=== PATIENT | female | born 1950 | race Caucasian/White ===

== ENCOUNTER 2019-05-15 19:15 | Emergency (ER) | payer BC, OTHER ==
[2019-05-15 20:06] LABS: ABS Eosinophils 0.1 10^3/ul (0-0.6); ABS Lymphocytes 1.6 10^3/ul (1.0-4.8); ABS Monocytes 0.5 10^3/ul (0-0.8); ABS Neutrophils 3.9 10^3/ul (1.5-7.7); Eosinophil % 1.8 %; Hematocrit 38 % (35-47); Hemoglobin 12.8 g/dL (12.0-16.0); Lymphocyte % 26.5 %; Mean Corpuscular HGB Conc 34 g/dL (31-36); Mean Corpuscular Hemoglobin 31 pg (27-31); Mean Corpuscular Volume 90 fL (80-97); Mean Platelet Volume 8.8 fL (7.4-10.4); Platelet Count 236 10^3/uL (150-450); Red Blood Count 4.19 10^6 /uL (3.70-4.87); Red Cell Distribution Width 14 % (10-15); White Blood Count 6.1 10^3/uL (3.5-10.8)
[2019-05-15 20:12] LABS: INR 1.15 (0.82-1.09)
[2019-05-15 20:27] LABS: Albumin/Globulin Ratio 1.6 (1-3); BUN/Creatinine Ratio 21.3 (8-20); C Reactive Protein 5.06 mg/L (<8.01); Calcium 9.6 mg/dL (8.6-10.3); EGFR African American 85.8 (>60); EGFR Non-African American 70.9 (>60); Globulin 2.5 g/dL (2-4); Potassium 3.9 mmol/L (3.5-5.0); Total Bilirubin 0.5 mg/dL (0.2-1.0); Total Protein 6.5 g/dL (6.4-8.9)
[2019-05-15] MEDS ORDERED: NS 0.9% 1000 ML** 1,000 ML IV ONE (21:01)
[2019-05-15] MEDS ORDERED: Morphine 4 MG/ML VIAL (1 ml) 4 MG/ML VIAL IV ONE (21:01)
--- NOTE | 2019-05-15 21:11 | ED ---
Abdominal Pain/Female - HPI Summary HPI Summary: 69 y/o female presented to [facility] complaining of abdominal pain present since yesterday. Pt began to feel cramps yesterday that were helped by a BM. Today at lunch the abd pain became worse. Pt endorses nausea, lack of appetite, and decreased oral intake. Pt denies fever, dysuria, and hematuria. She took ibuprofen today, which helped. Pain was also helped in the room by laying flat. Pt notes she has had food poisoning and stomach flu, but this feels different. Last BM was this morning. Pt denies Hx of DM or HTN and noted FHx of SBO. Pt denies cigarette use and drug use, and uses alcohol occasionally. She has her appendix. - History of Current Complaint Chief Complaint: EDAbdPain Stated Complaint: POSS APPENDICITIS PER PT Time Seen by Provider: 05/15/19 20:52 Hx Obtained From: Patient Onset/Duration: Lasting Days, Still Present Timing: Days Severity Currently: Moderate Pain Intensity: 7 Pain Scale Used: 0-10 Numeric Allergies/Adverse Reactions: Allergies Allergy/AdvReac Type Severity Reaction Status Date / Time Adhesive Tape Allergy Rash Verified 05/15/19 19:18 PMH/Surg Hx/FS Hx/Imm Hx Musculoskeletal History: Denies: Hx Osteoporosis - Cancer History Hx Chemotherapy: No Hx Radiation Therapy: No Infectious Disease History: No Infectious Disease History: Denies: Traveled Outside the [place] in Last 30 Days - Social History Alcohol Use: Rare Substance Use Type: Reports: None Smoking Status (MU): Never Smoked Tobacco Review of Systems All Other Systems Reviewed And Are Negative: Yes Physical Exam - Summary Physical Exam Summary: Constitutional: Well-developed, Well-nourished, Alert. (-) Distressed Skin: Warm, Dry HENT: Normocephalic; Atraumatic Eyes: Conjunctiva normal Neck: Musculoskeletal ROM normal neck. (-) JVD, (-) Stridor, (-) Tracheal deviation Cardio: Rhythm regular, rate normal, Heart sounds normal; Intact distal pulses; Radial pulses are 2+ and symmetric. (-) Murmur Pulmonary/Chest wall: Effort normal. (-) Respiratory distress, (-) Wheezes, (-) Rales Abd: Soft, (+) tendernessat McBurney's point, (-) Distension, (-) Guarding, (-) Rebound, Negative Obturator sign, no pain with heel tap Musculoskeletal: (-) Edema Lymph: (-) Cervical adenopathy Neuro: Alert, Oriented x3 Psych: Mood and affect Normal Triage Information Reviewed: Yes Vital Signs On Initial Exam: Initial Vitals Temp Pulse Resp BP Pulse Ox 97.3 F 80 16 164/86 99 05/15/19 19:17 05/15/19 19:17 05/15/19 19:17 05/15/19 19:17 05/15/19 19:17 Vital Signs Reviewed: Yes Procedures - Sedation Patient Received Moderate/Deep Sedation with Procedure: No Diagnostics - Vital Signs Vital Signs Temp Pulse Resp BP Pulse Ox 05/15/19 19:17 97.3 F 80 16 164/86 99 - Laboratory Lab Results: Lab Results 05/15/19 05/15/19 05/15/19 Range/Units 19:59 19:59 19:59 WBC 6.1 (3.5-10.8) 10^3/uL RBC 4.19 (3.70-4.87) 10^6 /uL Hgb 12.8 (12.0-16.0) g/dL Hct 38 (35-47) % MCV 90 (80-97) fL MCH 31 (27-31) pg MCHC 34 (31-36) g/dL RDW 14 (10-15) % Plt Count 236 (150-450) 10^3/uL MPV 8.8 (7.4-10.4) fL Neut % (Auto) 63.2 % Lymph % (Auto) 26.5 % Chester % (Auto) 7.8 % Eos % (Auto) 1.8 % Baso % (Auto) 0.7 % Absolute Neuts (auto) 3.9 (1.5-7.7) 10^3/ul Absolute Lymphs (auto) 1.6 (1.0-4.8) 10^3/ul Absolute Monos (auto) 0.5 (0-0.8) 10^3/ul Absolute Eos (auto) 0.1 (0-0.6) 10^3/ul Absolute Basos (auto) 0.0 (0-0.2) 10^3/ul Absolute Nucleated RBC 0.0 10^3/ul Nucleated RBC % 0.0 INR (Anticoag Therapy) (0.82-1.09) Sodium 139 (135-145) mmol/L Potassium 3.9 (3.5-5.0) mmol/L Chloride 106 (101-111) mmol/L Carbon Dioxide 27 (22-32) mmol/L Anion Gap 6 (2-11) mmol/L BUN 17 (6-24) mg/dL Creatinine 0.80 (0.51-0.95) mg/dL Est GFR ( Amer) 85.8 (>60) Est GFR (Non-Af Amer) 70.9 (>60) BUN/Creatinine Ratio 21.3 H (8-20) Glucose 120 H (70-100) mg/dL Lactic Acid 1.2 (0.5-2.0) mmol/L Calcium 9.6 (8.6-10.3) mg/dL Total Bilirubin 0.50 (0.2-1.0) mg/dL AST 26 (13-39) U/L ALT 17 (7-52) U/L Alkaline Phosphatase 78 (34-104) U/L C-Reactive Protein 5.06 (<8.01) mg/L Total Protein 6.5 (6.4-8.9) g/dL Albumin 4.0 (3.2-5.2) g/dL Globulin 2.5 (2-4) g/dL Albumin/Globulin Ratio 1.6 (1-3) Lipase 14 (11.0-82.0) U/L 05/15/19 Range/Units 19:59 WBC (3.5-10.8) 10^3/uL RBC (3.70-4.87) 10^6 /uL Hgb (12.0-16.0) g/dL Hct (35-47) % MCV (80-97) fL MCH (27-31) pg MCHC (31-36) g/dL RDW (10-15) % Plt Count (150-450) 10^3/uL MPV (7.4-10.4) fL Neut % (Auto) % Lymph % (Auto) % Chester % (Auto) % Eos % (Auto) % Baso % (Auto) % Absolute Neuts (auto) (1.5-7.7) 10^3/ul Absolute Lymphs (auto) (1.0-4.8) 10^3/ul Absolute Monos (auto) (0-0.8) 10^3/ul Absolute Eos (auto) (0-0.6) 10^3/ul Absolute Basos (auto) (0-0.2) 10^3/ul Absolute Nucleated RBC 10^3/ul Nucleated RBC % INR (Anticoag Therapy) 1.15 H (0.82-1.09) Sodium (135-145) mmol/L Potassium (3.5-5.0) mmol/L Chloride (101-111) mmol/L Carbon Dioxide (22-32) mmol/L Anion Gap (2-11) mmol/L BUN (6-24) mg/dL Creatinine (0.51-0.95) mg/dL Est GFR ( Amer) (>60) Est GFR (Non-Af Amer) (>60) BUN/Creatinine Ratio (8-20) Glucose (70-100) mg/dL Lactic Acid (0.5-2.0) mmol/L Calcium (8.6-10.3) mg/dL Total Bilirubin (0.2-1.0) mg/dL AST (13-39) U/L ALT (7-52) U/L Alkaline Phosphatase (34-104) U/L C-Reactive Protein (<8.01) mg/L Total Protein (6.4-8.9) g/dL Albumin (3.2-5.2) g/dL Globulin (2-4) g/dL Albumin/Globulin Ratio (1-3) Lipase (11.0-82.0) U/L Result Diagrams: 05/15/19 19:59 05/15/19 19:59 Lab Statement: Any lab studies that have been ordered have been reviewed, and results considered in the medical decision making process. Abdominal Pain Fem Course/Dx - Course Course Of Treatment: Patient is here with abdominal pain in her right lower quadrant. Patient's exam is concerning for appendicitis. Patient had blood performed which is grossly unremarkable. Patient was signed out to Dr. Charlton pending CT scan results - Diagnoses Provider Diagnoses: RLQ abdominal pain, Diarrhea Discharge ED - Sign-Out/Discharge Documenting (check all that apply): Sign-Out Patient Signing out patient TO: Roseline Charlton - Pt signed out to Dr. Charlton at 2200 termination of shift pending CT and dispo. Receiving patient FROM: Xu G Lambert - Discharge Plan Condition: Stable Disposition: HOME Prescriptions: Amoxicillin/Clavulanate TAB* [Augmentin TAB 875*] 875 mg PO BID #20 tab Patient Education Materials: Abdominal Pain (ED) Referrals: Derik Ann MD [Primary Care Provider] - 3 Days Additional Instructions: Please take medication as prescribed. Please follow up with your primary care physician within three days. Please return to ED for any new or worsening symptoms. - Billing Disposition and Condition Condition: STABLE Disposition: Home - Attestation Statements Document Initiated by Ayleen: Yes Documenting Scribe: Feliciano Roque Provider For Whom Ayleen is Documenting (Include Credential): Xu Rizo MD Scribe Attestation: Feliciano Law, shilohed for Xu Rizo MD on 05/18/19 at 0744. Scribe Documentation Reviewed: Yes Provider Attestation: The documentation as recorded by the Feliciano durbin accurately reflects the service I personally performed and the decisions made by Xu francis MD Status of Scribe Document: Viewed
[2019-05-15] MEDS ORDERED: Iohexol 300* (CONTRAST) 10 ML SDV IV ONE (21:20)
[2019-05-15 21:55] LABS: Urine Appearance Clear; Urine Bilirubin Negative (Negative); Urine Blood Negative (Negative); Urine Color Yellow; Urine Glucose Negative (Negative); Urine Ketones Trace (Negative); Urine Nitrite Negative (Negative); Urine Protein Negative (Negative); Urine Specific Gravity 1.029 (1.010-1.030); Urine Urobilinogen Negative (Negative)
--- NOTE | 2019-05-15 22:04 | ED ---
Progress - Progress Note Progress Note: The patient is a sign-out from Dr. Xu Rizo MD, to Dr. Roseline Charlton MD, at change of shift at 2200 on 05/15/2019, pending Abd/Pel CT and disposition. Abd/Pel CT impression is negative for acute findings but shows a Bosniak type I renal cyst. Patient administered Augmentin with rx. Patient safe for discharge. - Results/Orders Results/Orders: Abdomen Pelvis CT Impression: 1. Subtle possible terminal ileitis. No additional findings to correlate with patient's symptomatology. Specifically no appendicitis. 2. Bosniak type I renal cyst. No followup indicated. ED physician has reviewed this report. Re-Evaluation - Re-Evaluation First Eval Re-Evaluation Time: 22:40 Comment: I have discussed results with the patient. Discussed symptoms that warrant immediate return to ED. Course/Dx - Course Course Of Treatment: Patient administered Augmentin in the ED with rx for treatment at home. - Diagnoses Provider Diagnoses: RLQ abdominal pain, Diarrhea Discharge ED - Sign-Out/Discharge Documenting (check all that apply): Patient Departure - Patient will be discharged home., Receiving Sign-Out Receiving patient FROM: Xu Rizo - Patient is a sign-out from Dr. Xu Rizo MD, at 2200 on 05/15/2019, pending Abd/Pel CT and disposition. - Discharge Plan Condition: Stable Disposition: HOME Prescriptions: Amoxicillin/Clavulanate TAB* [Augmentin TAB 875*] 875 mg PO BID #20 tab Patient Education Materials: Abdominal Pain (ED) Referrals: Derik Ann MD [Primary Care Provider] - 3 Days Additional Instructions: Please take medication as prescribed. Please follow up with your primary care physician within three days. Please return to ED for any new or worsening symptoms. - Billing Disposition and Condition Condition: STABLE Disposition: Home - Attestation Statements Document Initiated by Scribe: Yes Documenting Scribe: Julieth Dunne Provider For Whom Ayleen is Documenting (Include Credential): Dr. Roseline Charlton MD Scribe Attestation: Julieth Law scribed for Dr. Roseline Charlton MD on 05/16/19 at 0330. Scribe Documentation Reviewed: Yes Provider Attestation: The documentation as recorded by the Julieth durbin accurately reflects the service I personally performed and the decisions made by me, Dr. Roseline Charlton MD Status of Scribe Document: Viewed Procedures - Sedation Patient Received Moderate/Deep Sedation with Procedure: No
[2019-05-15] MEDS ORDERED: Amoxicillin/Clavulanate TAB* 875 MG PO ONE (22:39)
[2019-05-15 22:46] VITALS: BP 130/69
== END 2019-05-15 22:55 | disposition home or self-care (01) ==
LOC: ED 19:15
DX: R10.31 Right lower quadrant pain (principal); R19.7 Diarrhea, unspecified; N28.1 Cyst of kidney, acquired
CPT/HCPCS: 36415; 74177; 80053; 81003; 83605; 83690; 85025; 85610; 86140; 96361; 96374; 99283; A9270-GY; J2270; Q9967